=== PATIENT | female | born 1985 | race Caucasian/White ===

== ENCOUNTER → 2023-05-23 | Outpatient (CLI) | payer OTHER | LOC: M RAD 06:24 | PROVIDERS: ATTEND Physician Assistant | DX: I10 Essential (primary) hypertension (principal) ==

== ENCOUNTER → 2024-01-28 | Outpatient (CLI) | payer OTHER | LOC: M CARPUL 14:44 | PROVIDERS: ATTEND Nurse Practitioner Adult Health | DX: R06.02 Shortness of breath (principal) ==

== ENCOUNTER → 2024-01-31 | Outpatient (REF) | payer OTHER | LOC: M LAB REF 17:13 | PROVIDERS: ATTEND Internal Medicine Nephrology | DX: N18.2 Chronic kidney disease, stage 2 (mild) (principal) ==

== ENCOUNTER → 2024-02-25 | Outpatient (CLI) | payer OTHER ==
[~2024-02-25] MED LIST: METHACHOLINE KIT (6 VIAL.NEB PREMIX) INH ONE
== END ==
LOC: M CARPUL 13:01
PROVIDERS: ATTEND Nurse Practitioner Adult Health
DX: R06.02 Shortness of breath (principal)

== ENCOUNTER → 2024-03-02 | Outpatient (REF) | payer OTHER ==
[2024-03-02 18:01] LABS: CREATININE FOR GFR 1.21 MG/DL (0.55-1.30); GLOMERULAR FILTRATION RATE 52.5 (>58); POTASSIUM SERUM 4.8 MMOL/L (3.5-5.1)
[2024-03-02 18:41] LABS: CREATININE CLEARANCE, URINE 87.5 ML/MIN (75-115); CREATININE, SERUM 1.2 MG/DL (0.55-1.02); CREATININE, URINE 67.21 MG/DL
== END ==
LOC: M LAB REF 17:04
PROVIDERS: ATTEND Internal Medicine Nephrology
DX: N18.2 Chronic kidney disease, stage 2 (mild) (principal)

== ENCOUNTER 2024-12-03 09:41 | Day surgery (SDC) | payer OTHER ==
[~2024-12-03] VITALS: Ht 167.6 cm; Wt 91.4 kg
[~2024-12-03 09:41] MED LIST changes: +ACETAMINOPHEN 1000MG/100ML IV BAG As Ordered ONE; +ALBU8.5H PO; +CETI-24 PO; +FLUT100B INH; +IBUP80TA PO; +LIDOCAINE 2% 100MG/5ML SDV (FOR ANES.) As Ordered ONE; +LOSA50TA28 PO; -METHACHOLINE KIT (6 VIAL.NEB PREMIX) INH ONE; +MIDAZOLAM INJ 2MG/2ML VIAL As Ordered ONE; +ONDANSETRON 4MG 2ML VIAL As Ordered ONE; +ROCURONIUM BROMIDE 50MG/5ML VIAL As Ordered ONE; +SUGAMMADEX SODIUM 500 MG/5 ML VIAL (BRIDION) As Ordered ONE; +TIRZ2.5P3 PO; +VIBE75TA PO; +fentaNYL 100 MCG/2 ML INJECTION As Ordered ONE; +propofoL 200 MG/20 ML VIAL As Ordered ONE
[2024-12-03 10:21] LABS: HEMATOCRIT 35.9 % (36.0-47.0); HEMOGLOBIN 12.5 g/dl (12.0-15.5); MEAN CORPUSCULAR HEMOGLOBIN 31.5 pg (27.0-33.0); MEAN CORPUSCULAR HGB CONC 34.8 g/dl (32.0-36.5); MEAN CORPUSCULAR VOLUME 90.4 fl (80.0-96.0); PLATELET COUNT, AUTOMATED 361 10^3/uL (150-450); RED BLOOD COUNT 3.97 10^6/uL (4.00-5.40); WHITE BLOOD COUNT 3.5 10^3/uL (4.0-10.0)
[2024-12-03] MEDS: SCOPOLAMINE 1MG TRANSDERMAL PATCH TOP ONE (10:40)
[2024-12-03] MEDS: LR 1,000 ML IV SCH (10:40)
[2024-12-03] MEDS: ACETAMINOPHEN 500 MG TAB PO ONE (10:40)
[2024-12-03 10:49] LABS: BLOOD UREA NITROGEN 11 MG/DL (9-23); CALCIUM LEVEL 9.4 MG/DL (8.5-10.1); CARBON DIOXIDE LEVEL 24 MMOL/L (20-31); CHLORIDE LEVEL 108 MMOL/L (98-107); CREATININE FOR GFR 1.03 MG/DL (0.55-1.30); GLOMERULAR FILTRATION RATE > 60.0 (>58); GLUCOSE, FASTING 84 MG/DL (60-100); POTASSIUM SERUM 4.8 MMOL/L (3.5-5.1); SODIUM LEVEL 141 MMOL/L (136-145)
[2024-12-03] MEDS ORDERED: HYDROmorphone HCL 2MG/ML 1ML VIAL As Ordered ONE (14:03)
[2024-12-03] MEDS ORDERED: ONDANSETRON 4MG 2ML VIAL IV PRN (14:35)
[2024-12-03] MEDS ORDERED: oxyCODONE 5MG TAB PO PRN (14:35)
[2024-12-03] MEDS ORDERED: fentaNYL 100 MCG/2 ML INJECTION IV PRN (14:35)
[2024-12-03] MEDS ORDERED: HYDROMORPHONE HCL 0.5 MG/ 0.5 ML SYRINGE IV PRN (14:35)
[2024-12-03] MEDS ORDERED: LR 1,000 ML IV SCH (14:35)
[2024-12-03 15:54] VITALS: BP 112/63; TEMP 97.9; O2SAT 99
== END 2024-12-03 16:29 | disposition home or self-care (01) ==
LOC: M SDC 09:41
PROVIDERS: ATTEND Student in an Organized Health Care Education/Training Program
DX: N83.201 Unspecified ovarian cyst, right side (principal); N85.00 Endometrial hyperplasia, unspecified; Z30.2 Encounter for sterilization; Z79.899 Other long term (current) drug therapy
CPT/HCPCS: 36415; 58558; 58661; 80048; 81025; 85027; 86850; 86900; 86901; 88302; 88305; 93005; A6024; J0665; J1100; J1171; J2250; J2405; J3010